=== PATIENT | male | born 1995 | race Two or more races ===

== ENCOUNTER 2025-05-28 22:55 | Emergency (ER) | payer MEDICAID, SELFPAY ==
[2025-05-28 22:57] VITALS: BMI 37.9
[2025-05-28 23:13] VITALS: BP 151/98; PULSE 88; RESP 18; TEMP 36.7; O2SAT 96
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
[2025-05-28] MEDS: DIPHTH,PERTUSS(ACELL),TET VAC 0.5 ML SYR- ADULT IMi (23:38)
== END 2025-05-29 00:01 | disposition home or self-care (01) ==
LOC: SERX 23:56
PROVIDERS: Emergency Provider Emergency Medicine; PCP Family Medicine
DX: T22.012A Burn of unspecified degree of left forearm, initial encounter (principal); T22.011A Burn of unspecified degree of right forearm, initial encounter; X10.2XXA Contact with fats and cooking oils, initial encounter; Z23 Encounter for immunization
CPT/HCPCS: 90471; 90715; 99283